=== PATIENT | female | born 1975 | race Two or more races ===

== ENCOUNTER 2019-06-23 17:43 | Emergency (ER) | payer SELFPAY ==
[~2019-06-23] VITALS: Ht 157.5 cm; Wt 59.0 kg
[2019-06-23 17:52] VITALS: BP 110/77
== END 2019-06-23 18:43 | disposition home or self-care (01) ==
LOC: EDBD 17:43 → ER 17:43
DX: F41.9 Anxiety disorder, unspecified (principal)

== ENCOUNTER 2019-07-30 09:46 | Emergency (ER) | payer MEDICAID ==
[~2019-07-30] VITALS: Ht 154.9 cm; Wt 45.4 kg
[2019-07-30] MEDS ORDERED: SODIUM CHLORIDE 0.9% 1,000 ML IV ONE ×2 (10:57)
[2019-07-30] MEDS ORDERED: LORazepam 2MG/ML-1ML VIAL IV ONE (11:15)
[2019-07-30 12:51] LABS: Basophils # (auto) 0.1 uL; Basophils % (auto) 1.2 % (0.0-2.0); Eosinophils # (auto) 0 uL; Eosinophils % (auto) 0.9 % (0.0-7.0); Hematocrit 32.2 % (36.0-46.0); Hemoglobin 10.8 g/dL (12.2-16.2); Lymphocytes # (auto) 0.8 uL; Lymphocytes % (auto) 16.5 % (10.0-50.0); Mean Corpuscular Hemoglobin 30.6 pg (28.0-32.0); Mean Corpuscular Hgb Conc. 33.6 g/dL (32.0-36.0); Monocytes # (auto) 0.5 uL; Monocytes % (auto) 10.2 % (0.0-12.0); Neutrophils # (auto) 3.3 uL; Neutrophils % (auto) 71.2 % (37.0-80.0); Platelet Count (auto) 250 10^3/uL (140-450); Red Blood Cells 3.53 10^6/uL (4.0-5.20); Red Cell Distribution Width 13.4 % (11.8-14.3); White Blood Cell 4.6 10^3/uL (4.4-10.8)
[2019-07-30 13:03] LABS: INR 1.03 (0.9-1.15)
[2019-07-30 13:06] LABS: Albumin 2.2 g/dL (3.4-5.0); Anion Gap 6 (5-15); Blood Urea Nitrogen 8 mg/dL (7-18); Calcium 7.5 mg/dL (8.5-10.1); Carbon Dioxide 24 mmol/L (21-32); Chloride 109 mmol/L (98-107); Glucose 84 mg/dL (74-106); Potassium 3.4 mmol/L (3.5-5.1); Sodium 139 mmol/L (136-145)
[2019-07-30 13:13] LABS: Alanine Aminotransferase 14 U/L (13-56); Alkaline Phosphatase 48 U/L (45-117); Aspartate Aminotransferase 34 U/L (15-37); BUN/Creatinine Ratio 11.4; Bilirubin, Total 0.3 mg/dL (0.2-1.0); GFR African American 116 mL/min; GFR Non-African American 96 mL/min; Total Protein 7.7 g/dL (6.4-8.2)
[2019-07-30 14:10] LABS: Urine Bacteria MANY /hpf (None Seen); Urine Blood Negative /uL (Negative); Urine Hyaline Cast FEW /lpf (0 - 2); Urine WBC 82 /hpf (0 - 5)
[2019-07-30] MEDS ORDERED: ALBUTEROL SULF 2.5 MG/0.5ML(0.5%) NEB SOLN NEB ONE (16:15)
[2019-07-30] MEDS ORDERED: IPRATROPIUM BROM 0.5 MG/2.5ML INH SOL NEB ONE (16:15)
[2019-07-30] MEDS ORDERED: cefTRIAXone 1GM/50ML D5W 50 ML IV ONE (16:45)
[2019-07-30] MEDS ORDERED: ACETAMINOPHEN 500 MG TAB PO ONE (16:45)
[2019-07-30 17:06] VITALS: BP 105/82
== END 2019-07-30 17:07 | disposition home or self-care (01) ==
LOC: EDBD 09:46 → ER 09:52
DX: F41.9 Anxiety disorder, unspecified (principal); J40 Bronchitis, not specified as acute or chronic; N39.0 Urinary tract infection, site not specified; E46 Unspecified protein-calorie malnutrition
CPT/HCPCS: 36415; 71101; 80053; 81001; 83880; 84484; 85025; 85610; 85730; 94640; 96365; 96375; 99284; J0696; J2060; J7030; J7611; J7644; 96361

== ENCOUNTER 2019-08-26 23:35 | Emergency (ER) | payer MEDICAID ==
[~2019-08-26] VITALS: Ht 162.6 cm; Wt 49.9 kg
[2019-08-27 04:10] VITALS: BP 110/78
== END 2019-08-27 04:11 | disposition home or self-care (01) ==
LOC: EDBD 23:35 → ER 23:40
DX: S43.401A Unspecified sprain of right shoulder joint, initial encounter (principal); M54.2 Cervicalgia; R51 Headache; M54.9 Dorsalgia, unspecified; J45.909 Unspecified asthma, uncomplicated; Y08.89XA Assault by other specified means, initial encounter; Y93.89 Activity, other specified; Y99.8 Other external cause status; Y92.89 Other specified places as the place of occurrence of the external cause
CPT/HCPCS: 70450; 72125; 73030

== ENCOUNTER → 2019-09-30 | Emergency (ER) | payer MEDICAID ==
[~2019-09-30] VITALS: Ht 160 cm; Wt 38.1 kg
[2019-09-30 15:55] LABS: Basophils # (auto) 0 uL; Basophils % (auto) 1.1 % (0.0-2.0); Eosinophils # (auto) 0.2 uL; Eosinophils % (auto) 6.1 % (0.0-7.0); Hematocrit 40.1 % (36.0-46.0); Hemoglobin 13.7 g/dL (12.2-16.2); Lymphocytes # (auto) 0.9 uL; Lymphocytes % (auto) 35.2 % (10.0-50.0); Mean Corpuscular Hemoglobin 30.8 pg (28.0-32.0); Mean Corpuscular Hgb Conc. 34.1 g/dL (32.0-36.0); Mean Corpuscular Volume 90.2 fL (80.0-100.0); Monocytes # (auto) 0.2 uL; Monocytes % (auto) 8.6 % (0.0-12.0); Neutrophils # (auto) 1.2 uL; Nucleated Red Blood Cells % 0.3 %; Platelet Count (auto) 298 10^3/uL (140-450); Red Blood Cells 4.44 10^6/uL (4.0-5.20); White Blood Cell 2.6 10^3/uL (4.4-10.8)
[2019-09-30 15:58] LABS: Albumin 2.9 g/dL (3.4-5.0); BUN/Creatinine Ratio 20.8; Calcium 8.5 mg/dL (8.5-10.1); Potassium 3.5 mmol/L (3.5-5.1)
[2019-09-30 15:59] LABS: Bilirubin, Total 0.3 mg/dL (0.2-1.0); Total Protein 8.9 g/dL (6.4-8.2)
[2019-09-30 16:38] LABS: Amphetamine Screen, Urine POSITIVE (NEGATIVE); Barbiturate Scree,Urine NEGATIVE (NEGATIVE); Benzodiazephine Screen, Urine NEGATIVE (NEGATIVE); Cannabinoid Screen, Urine NEGATIVE (NEGATIVE); Cocaine Screen, Urine NEGATIVE (NEGATIVE); Opiate Scree,Urine NEGATIVE (NEGATIVE); Phencyclidine Screen, Urine NEGATIVE (NEGATIVE); Urine Bacteria MANY /hpf (None Seen); Urine Blood Negative /uL (Negative); Urine Specific Gravity 1.019 (1.001-1.035); Urine WBC 91 /hpf (0 - 5)
[2019-10-01 00:57] VITALS: BP 114/81
== END | disposition home or self-care (01) ==
LOC: ER 15:13
DX: R53.1 Weakness (principal); F10.239 Alcohol dependence with withdrawal, unspecified; J45.909 Unspecified asthma, uncomplicated; I10 Essential (primary) hypertension
CPT/HCPCS: 36415; 70450; 80053; 80307; 81001; 81025; 85025